=== PATIENT | female | born 1980 ===

== ENCOUNTER 2025-01-31 12:13 | Emergency (ER) | payer BC, SELFPAY ==
[2025-01-31 12:15] VITALS: BP 145/98
[2025-01-31] MEDS: MORPHINE SULFATE 2 MG IV (12:59)
[2025-01-31] MEDS: ZOFRAN 4 MG IV (12:59)
[2025-01-31] MEDS: NSS 500 IV (12:59)
--- NOTE | 2025-01-31 12:59 | ED.GENMED ---
History of Present Illness
General
Chief Complaint: Abdominal Pain
Source: patient and spouse
Exam Limitations: none
Time Seen by Provider: 01/31/25 12:36
Nursing documentation reviewed up to this point in time: agreed with
History of Present Illness
History of Present Illness:
Patient presents to ED secondary to sudden onset of left lower abdominal pain with nausea and vomiting, around 11 AM while she was sitting in front of computer working. Abdominal pain described as cramping, nonradiating, without any alleviating or
exacerbating factors. Patient attempted to have bowel movement, with the hopes that it would alleviate her symptoms, without success. Denies fever or chills. Denies trauma. Denies back pain. Denies difficulty with urination. Denies previous
history of similar symptoms. Denies family history of kidney stones or gallstones. Denies recent illness. Denies sick contact. Denies change in activities. Patient reports taking Flexeril for the first time last night, secondary to bulging disc.
Review of Systems
Review of Systems
All Other Systems: ROS reviewed and negative except as documented in HPI and ROS
Constitutional: Reports no symptoms; Denies fever
ABD/GI: Reports abdominal pain, nausea and vomiting
: Reports no symptoms
Musculoskeletal: Reports no symptoms
Skin: Reports no symptoms
Neurological: Reports no symptoms
Phy Exam
Physical Exam
Physical Exam:
Physical Exam
General: moderate painful distress, not acutely ill. afebrile
Head: nc/at. eomi
Neck: supple. normal range of motion
Abdomen: normal bowel sounds. mild LLQ tenderness to palpation, without distention
Neuro: alert and oriented x 3. no focal neurological deficits
Skin: no rash
Psychiatric: well kept. interactive and cooperative
Extremities: no edema. no calf tenderness.
Course
Orders/Labs/Results
Orders:
Orders
01/31/25 12:56
0.9% Sodium Chloride 500 ml [Nss] 500 ml IV BOLUS
Ondansetron Injectable [Zofran] 4 mg IV NOW STA
Test Result ONCE
01/31/25 12:57
Ketorolac [Toradol] 15 mg .ROUTE .STK-MED ONE
Morphine Sulfate 2 mg IV NOW STA
Ondansetron Injectable [Zofran] 4 mg .ROUTE .STK-MED ONE
US Pelvis W Transvag Combined Urgent
Comment:
Reason For Exam: LLQ pain
01/31/25 13:04
Basic Metabolic Panel Urgent
Complete Blood Count/With Diff Urgent
HCG, Serum Qualitative Screen Urgent
01/31/25 13:51
HYDROmorphone [Dilaudid] 0.5 mg IV NOW STA
01/31/25 16:57
Stool Culture Urgent
LAI Source: Feces/Stool
Specimen Description:
Date Specimen was Collected: 01/31/25
Time Specimen was Collected: 16:56
Abnormal Lab Results
01/31/25
13:04
WBC 17.9 H 10^3/uL
(4.8-10.8)
Abs Immat Gran (auto) 0.1 H 10^3/uL
(0-0.05)
Absolute Neuts (auto) 14.9 H 10^3/uL
(1.4-6.5)
Absolute Monos (auto) 1.0 H 10^3/uL
(0.1-0.6)
Neutrophils % 82.9 H %
(42.2-75.2)
Lymphocytes % 10.8 L %
(20.5-51.1)
Chloride 109 H mmol/L
(98-107)
Carbon Dioxide 21 L mmol/L
(22-30)
BUN 21 H mg/dl
(7-17)
Glucose 111 H mg/dl
(70-99)
01/31/25 13:04
01/31/25 13:04
Vital Signs
Initial and Last Documented VS:
Initial Vital Signs
Temp Pulse Resp BP Pulse Ox
98.5 F 67 16 145/98 98
01/31/25 12:15 01/31/25 12:15 01/31/25 12:15 01/31/25 12:15 01/31/25 12:15
Last Documented Vital Signs
Temp Pulse Resp BP Pulse Ox
97.9 F 75 18 130/70 100
01/31/25 13:57 01/31/25 15:26 01/31/25 15:26 01/31/25 15:26 01/31/25 15:26
MDM/Problems Addressed
MDM/Problems Addressed:
Pelvic ultrasound report reviewed and discussed with patient. Repeat abdominal exam: Soft and nontender. Patient does report improvement after treatment. In addition, during observation in ED, patient reports loose bowel movement along with
cramping sensation in her lower abdomen, raising possibility of cramping associated with diarrhea, likely viral as etiology behind her presenting symptoms. Otherwise, patient remains afebrile, hemodynamically stable, and nontoxic-appearing. With
blood work being normal and benign repeat abdominal exam, patient feels comfortable going home at this time. Patient will be treated conservatively with fluids and antiemetic medication, with return precautions provided, i.e. fever/worsening
pain/persistent vomiting. Patient expresses understanding, at time of discharge, to the care of her spouse.
*Pulse Oximetry
SaO2: 98
Oxygen Mode of Delivery: Room air
Patient hypoxic: no
*Critical Care Note
Total Time (30-74mins, 75-104mins- exclusive of procedures): Not Applicable
ED Attending Note
-
Portions of this chart may have been created with voice recognition software.� Occasional wrong word or��sound alike� substitutions may have occurred due to the inherent limitations of voice recognition software.
Discharge Plan
Departure
Patient Disposition: Home (Routine Discharge)
Date of Disposition: 01/31/25
Time of Disposition: 16:25
Patient with high blood pressure during this ER visit?: Yes
Condition: Good
Discharge Problem:
Abdominal pain
Instructions: Abdominal Pain
Prescriptions:
New
ondansetron 4 mg Tablet,Disintegrating
4 mg PO TIDPRN PRN (Reason: nausea/vomiting) Qty: 12 0RF
Referrals:
UNKNOWN - PT DOES,NOT KNOW [Family Provider]
Activity Restrictions/Additional Instructions:
As discussed, please follow-up with your primary care physician for reevaluation. Please consider return to ED with worsening symptoms, i.e. fever/worsening pain/vomiting. Your prescription has been sent electronically to [facility]
Interventions
Interventions:
*Risk Screen - Suicide Last Done: 01/31/25 12:15
*General Assessment Last Done: 01/31/25 12:15
*Neglect/Abuse Screening Last Done: 01/31/25 12:15
*ED- Fall Risk Assessment Last Done: 01/31/25 12:15
*ED COVID-19 Vaccine History Last Done: 01/31/25 12:15
*ED Influenza Vaccine History Last Done: 01/31/25 12:15
*Nursing Disposition Last Done: 01/31/25 16:43
DA-Qjichf-Qtatbszxbv Assessment Last Done: 01/31/25 14:27
Discharge Date and Time
Discharge Date/Time: 01/31/25 16:43
Print Language: LAO
[2025-01-31 13:17] LABS: Hematocrit 39.9 % (37.0-47.0); Hemoglobin 13.2 g/dL (12.0-16.0); Mean Corp Hgb Conc. 33.1 g/dL (33.0-37.0); Mean Corpuscular Volume 93.2 fL (81.0-99.0); Nucleated Red Blood Cells % 0 %; Platelet Count 400 10^3/uL (130-400); Red Cell Dist. Width 12.9 % (11.5-14.5)
[2025-01-31 13:42] LABS: HCG, Serum Qualitative Screen Negative
[2025-01-31 13:44] LABS: Blood Urea Nitrogen 21 mg/dl (7-17); Calcium 9.7 mg/dl (8.4-10.2); Carbon Dioxide 21 mmol/L (22-30); Chloride 109 mmol/L (98-107); Glucose 111 mg/dl (70-99); Potassium 3.5 mmol/L (3.5-5.1); Sodium 138 mmol/L (135-145); eGFR > 60.00
[2025-01-31] MEDS: DILAUDID 0.5 MG IV (14:03)
[2025-01-31 15:26] VITALS: BP 130/70
== END 2025-01-31 16:43 | disposition home or self-care (01) ==
LOC: EMR 12:13
PROVIDERS: EMERGENCY PHYSICIAN Emergency Medicine
DX: R10.32 Left lower quadrant pain (principal); R03.0 Elevated blood-pressure reading, without diagnosis of hypertension
CPT/HCPCS: 99284; 96374; 96375 ×2; 96361; 76830; 76856; 80048; 84703; 85025; 87045; 87046; 87427

== ENCOUNTER 2025-02-02 16:34 | Inpatient (IN) | payer BC, SELFPAY ==
[2025-02-02] VITALS (11 sets, daily range): BP systolic 109–149; BP diastolic 69–92; BMI 27.7; BMI 26.9
[2025-02-02] MEDS: DILAUDID 1 MG IV ×2 (12:40→16:17)
[2025-02-02] MEDS: ZOFRAN 4 MG IV (12:40)
[2025-02-02] MEDS: NSS 1000 IV ×2 (12:41→21:03)
[2025-02-02 13:01] LABS: Hematocrit 43.8 % (37.0-47.0); Hemoglobin 14.1 g/dL (12.0-16.0); Mean Corp Hgb Conc. 32.2 g/dL (33.0-37.0); Mean Corpuscular Volume 94.0 fL (81.0-99.0); Platelet Count 377 10^3/uL (130-400); Red Cell Dist. Width 13.0 % (11.5-14.5)
[2025-02-02 13:16] LABS: ALT (SGPT) 25 U/L (0-35); AST (SGOT) 24 U/L (14-36); Albumin 4.0 g/dl (3.5-5.0); Alkaline Phosphatase 90 U/L (38-126); Blood Urea Nitrogen 11 mg/dl (7-17); Calcium 9.0 mg/dl (8.4-10.2); Carbon Dioxide 23 mmol/L (22-30); Chloride 104 mmol/L (98-107); Estimated Creatinine Clearance 94 ml/min; Glucose 96 mg/dl (70-99); Lipase 130 U/L (23-300); Potassium 4.2 mmol/L (3.5-5.1); Sodium 135 mmol/L (135-145); Total Protein 7.0 g/dl (6.3-8.2); eGFR > 60.00
[2025-02-02 13:17] LABS: Urine Character Clear (Clear)
[2025-02-02 13:30] LABS: Nucleated Red Blood Cells % 0 %
[2025-02-02 13:33] LABS: Urine Squamous Cell 26-30 /LPF (Few)
--- NOTE | 2025-02-02 14:57 | ED.GENMED ---
History of Present Illness
<Ani Sexton PA-C - Last Filed: 02/03/25 20:00>
General
Chief Complaint: Abdominal Pain
Source: patient
Exam Limitations: none
Time Seen by Provider: 02/02/25 11:21
Nursing documentation reviewed up to this point in time: agreed with
History of Present Illness
History of Present Illness:
see MDM
Phy Exam
<Ani Sexton PA-C - Last Filed: 02/03/25 20:00>
Physical Exam
Physical Exam:
see MDM
Course
<Ani Sexton PA-C - Last Filed: 02/03/25 20:00>
Orders/Labs/Results
Orders:
Orders
02/02/25 Breakfast
Clear Liquid
At Your Request: Full Participation
02/02/25 12:18
0.9% Sodium Chloride 1000 ml [Nss] 1,000 ml IV BOLUS
HYDROmorphone [Dilaudid] 1 mg IV NOW STA
Ondansetron Injectable [Zofran] 4 mg IV NOW STA
02/02/25 12:19
CT Abd/Pel (IV only)-DH only Urgent
Comment:
Reason For Exam: lower abd pain, fever, hematochezia
02/02/25 12:44
Complete Blood Count/With Diff Urgent
Comprehensive Metabolic Panel Urgent
Lactic Acid Urgent
Lipase Urgent
Urinalysis Reflex To Culture Urgent
Date Specimen was Collected: 02/02/25
Time Specimen was Collected: 12:41
Urine Microscopic Reflex Cult Urgent
Blood Culture Q30M
LAI Source: Blood/Venous
Specimen Description:
Blood Culture Q30M
LAI Source: Blood/Venous
Specimen Description:
Urine Culture Urgent
LAI Source: U
Specimen Description:
Date Specimen was Collected: 10/18/25
Time Specimen was Collected: 12:41
02/02/25 14:56
Piperacillin/Tazo 3.375 Gram [Zosyn] 3.375 gram in 50 ml IV NOW
02/02/25 15:45
Admit/Transfer Patient As Directed
Co-Sign Provider:
Level of Care: Inpatient admission
Assign to:: Medical/Surgical
Physician / Group: deb
Diagnosis: colitis
Reason for Hospitalization: colitis
Expected length of stay greater than two midnights?: Yes
ELOS- Estimated Length of Stay in days: 3
I certify the patient meets the requirements for IP care: Yes
Code Status As Directed
Resuscitation Status: Full Code
PRN Pain Medication Management As Directed
May give lesser potent ordered pain med per pt: Yes
preference::
Protocol:: Medication orders for pain may be administered in a
manner that supports deferring to patient preference
when the pt is:
- Requesting an ordered lesser potent pain medication.
Least to most potent pain medications are defined
as: acetaminophen < NSAID < tramadol < opioids
(morphine, oxycodone, hydromorphone).
- Requesting a lesser dose of the same medication IF
ORDERED.
- Requesting a less intrusive route of administration
if both routes are prescribed by the provider (PO <
IV).
02/02/25 16:07
HYDROmorphone [Dilaudid] 1 mg IV NOW STA
02/02/25 20:27
0.9% Sodium Chloride 1000 ml [Nss] 1,000 ml IV 100 mls/hr
Acetaminophen [Tylenol] 650 mg PO Q4HPRN PRN
02/02/25 20:27
Activity As Directed
Activity Level: As Tolerated
Pneumatic Compression Sleeves As Directed
Type: Knee high
Vital Signs As Directed
Frequency: Per unit guidelines
DX Deep Vein Thrombosis Video Routine
02/03/25 06:15
Basic Metabolic Panel IN AM
Complete Blood Count/No Diff IN AM
02/03/25 22:00
Piperacillin/Tazo 3.375 Gram [Zosyn] 3.375 gram in 50 ml IV Q6H
02/04/25 06:00
Basic Metabolic Panel IN AM
Complete Blood Count/No Diff IN AM
02/05/25 06:00
Basic Metabolic Panel IN AM
Complete Blood Count/No Diff IN AM
02/06/25 06:00
Basic Metabolic Panel IN AM
Abnormal Lab Results
02/02/25
12:44
WBC 25.6 H 10^3/uL
(4.8-10.8)
MCHC 32.2 L g/dL
(33.0-37.0)
Abs Immat Gran (auto) 0.2 H 10^3/uL
(0-0.05)
Absolute Neuts (auto) 22.4 H 10^3/uL
(1.4-6.5)
Absolute Monos (auto) 1.0 H 10^3/uL
(0.1-0.6)
Immature Gran % 0.6 H %
(0-0.5)
Neutrophils % 87.7 H %
(42.2-75.2)
Lymphocytes % 7.0 L %
(20.5-51.1)
Urine Ketones 3+ A
(Negative)
Ur Occult Blood Reflex 2+ A
(Negative)
Leukocyte Esterase Rfl 1+ A
(Negative)
Urine RBC 7-10 A /HPF
(0-2)
Urine Bacteria (Reflex) Moderate A
(Negative)
Urine Albumin (Reflex) 2+ A
(Neg - Trace)
02/02/25 12:44
02/02/25 12:44
Vital Signs
Initial and Last Documented VS:
Initial Vital Signs
Temp Pulse Resp BP Pulse Ox
36.5 C 111 20 149/89 99
02/02/25 11:08 02/02/25 11:08 02/02/25 11:08 02/02/25 11:08 02/02/25 11:08
Last Documented Vital Signs
Temp Pulse Resp BP Pulse Ox
36.7 C 89 16 123/76 100
02/03/25 16:00 02/03/25 16:00 02/03/25 16:00 02/03/25 16:00 02/03/25 16:00
<Aravind Ledesma, DO - Last Filed: 02/02/25 16:45>
Orders/Labs/Results
Orders:
Orders
02/02/25 Breakfast
Clear Liquid
At Your Request: Full Participation
02/02/25 12:18
0.9% Sodium Chloride 1000 ml [Nss] 1,000 ml IV BOLUS
HYDROmorphone [Dilaudid] 1 mg IV NOW STA
Ondansetron Injectable [Zofran] 4 mg IV NOW STA
02/02/25 12:19
CT Abd/Pel (IV only)-DH only Urgent
Comment:
Reason For Exam: lower abd pain, fever, hematochezia
02/02/25 12:44
Complete Blood Count/With Diff Urgent
Comprehensive Metabolic Panel Urgent
Lactic Acid Urgent
Lipase Urgent
Urinalysis Reflex To Culture Urgent
Date Specimen was Collected: 02/02/25
Time Specimen was Collected: 12:41
Urine Microscopic Reflex Cult Urgent
Blood Culture Q30M
LAI Source: Blood/Venous
Specimen Description:
Blood Culture Q30M
LAI Source: Blood/Venous
Specimen Description:
Urine Culture Urgent
LAI Source: U
Specimen Description:
Date Specimen was Collected: 02/02/25
Time Specimen was Collected: 12:41
02/02/25 14:56
Piperacillin/Tazo 3.375 Gram [Zosyn] 3.375 gram in 50 ml IV NOW
02/02/25 15:45
Admit/Transfer Patient As Directed
Co-Sign Provider:
Level of Care: Inpatient admission
Assign to:: Medical/Surgical
Physician / Group: deb
Diagnosis: colitis
Reason for Hospitalization: colitis
Expected length of stay greater than two midnights?: Yes
ELOS- Estimated Length of Stay in days: 3
I certify the patient meets the requirements for IP care: Yes
Code Status As Directed
Resuscitation Status: Full Code
PRN Pain Medication Management As Directed
May give lesser potent ordered pain med per pt: Yes
preference::
Protocol:: Medication orders for pain may be administered in a
manner that supports deferring to patient preference
when the pt is:
- Requesting an ordered lesser potent pain medication.
Least to most potent pain medications are defined
as: acetaminophen < NSAID < tramadol < opioids
(morphine, oxycodone, hydromorphone).
- Requesting a lesser dose of the same medication IF
ORDERED.
- Requesting a less intrusive route of administration
if both routes are prescribed by the provider (PO <
IV).
02/02/25 16:07
HYDROmorphone [Dilaudid] 1 mg IV NOW STA
02/02/25 20:27
0.9% Sodium Chloride 1000 ml [Nss] 1,000 ml IV 100 mls/hr
Acetaminophen [Tylenol] 650 mg PO Q4HPRN PRN
02/02/25 20:27
Activity As Directed
Activity Level: As Tolerated
Pneumatic Compression Sleeves As Directed
Type: Knee high
Vital Signs As Directed
Frequency: Per unit guidelines
DX Deep Vein Thrombosis Video Routine
02/03/25 06:15
Basic Metabolic Panel IN AM
Complete Blood Count/No Diff IN AM
02/03/25 22:00
Piperacillin/Tazo 3.375 Gram [Zosyn] 3.375 gram in 50 ml IV Q6H
02/04/25 06:00
Basic Metabolic Panel IN AM
Complete Blood Count/No Diff IN AM
02/05/25 06:00
Basic Metabolic Panel IN AM
Complete Blood Count/No Diff IN AM
02/06/25 06:00
Basic Metabolic Panel IN AM
Abnormal Lab Results
02/02/25
12:44
WBC 25.6 H 10^3/uL
(4.8-10.8)
MCHC 32.2 L g/dL
(33.0-37.0)
Abs Immat Gran (auto) 0.2 H 10^3/uL
(0-0.05)
Absolute Neuts (auto) 22.4 H 10^3/uL
(1.4-6.5)
Absolute Monos (auto) 1.0 H 10^3/uL
(0.1-0.6)
Immature Gran % 0.6 H %
(0-0.5)
Neutrophils % 87.7 H %
(42.2-75.2)
Lymphocytes % 7.0 L %
(20.5-51.1)
Urine Ketones 3+ A
(Negative)
Ur Occult Blood Reflex 2+ A
(Negative)
Leukocyte Esterase Rfl 1+ A
(Negative)
Urine RBC 7-10 A /HPF
(0-2)
Urine Bacteria (Reflex) Moderate A
(Negative)
Urine Albumin (Reflex) 2+ A
(Neg - Trace)
02/02/25 12:44
02/02/25 12:44
Vital Signs
Initial and Last Documented VS:
Initial Vital Signs
Temp Pulse Resp BP Pulse Ox
36.5 C 111 20 149/89 99
02/02/25 11:08 02/02/25 11:08 02/02/25 11:08 02/02/25 11:08 02/02/25 11:08
Last Documented Vital Signs
Temp Pulse Resp BP Pulse Ox
36.7 C 89 16 123/76 100
02/03/25 16:00 02/03/25 16:00 02/03/25 16:00 02/03/25 16:00 02/03/25 16:00
<Ani Sexton PA-C - Last Filed: 02/03/25 20:00>
MDM/Problems Addressed
Differential Diagnosis Includes:
see MDM
MDM/Problems Addressed:
Note:
CHIEF COMPLAINT(S)
Abdominal pain
HISTORY OF PRESENT ILLNESS
The patient is a 44-year-old female who reports persistent abdominal cramps that began 2 daysa go at approximately 11 a.m. She describes the pain as starting in her lower abdomen and has been associated with chills and overheating. She attempted to
alleviate these symptoms by lying on the floor and removing her clothes. The patient experienced difficulty breathing and was brought to the hospital the following day, noting that the cramps were intense, constant, and made it difficult to breathe
through them. Upon arrival at the hospital, pt had labs (wbc 17) and pelvic US (neg) and was given IV pain meds and felt better; while here, she had a small bowel movement described as thick diarrheal-like in consistency. Since then, she was advised
to follow a liquid diet and was instructed to return if symptoms worsened.
stool studies neg
discharged home
The patient adhered to a liquid diet on Tuesday, consuming water, Gatorade, applesauce, chicken broth, fruit cups, and red jello. She reports that although the cramps reduced in frequency and severity, she continued to experience significant pain on
the left side and in her lower back. The pain was interpreted as muscle soreness from previous episodes of cramping. On the morning of presentation, after consuming a small meal, she noted dark red stool, which raised concerns about possible blood,
despite having consumed red jello.
The patient reports no recent fever at home or recorded temperatures. She denies prior surgical history except for a , surgery related to a Cushings condition, negative for bowel obstructions, inflammatory bowel disease, or significant
bowel surgery except for hemorrhoids during .
PAST MEDICAL AND SURIGICAL HISTORY
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
CHRONIC MEDICAL CONDITIONS SIGNIFICANTLY AFFECTING CARE
Cushings syndrome
MEDICATIONS
Mirena for contraception (last changed on the of the month)
REVIEW OF SYSTEMS
- Gastrointestinal: Abdominal cramps, left-side and lower back pain, thick diarrhea-like movements, dark red stools
- Constitutional: Chills and overheating without documented fever
- Respiratory: Difficult breathing during cramping episodes
PHYSICAL EXAM
GENERAL: Alert , in no apparent distress
EYE: pupils equal and reactive
NECK: Supple
ENT: o/p clr, mmm.
CARDIAC: Regular rate and rhythm .
LUNGS: Clear breath sounds bilaterally, no acute respiratory distress, no wheezes/rales/rhonchi
ABDOMEN: Soft, moderate left lower quadrant tenderness, mild guarding, , no cvat, normal bowel sounds
NEUROLOGICAL: Alert and oriented, no focal neuro deficits
SKIN: Warm and dry, skin intact.
MUSCULOSKELETAL: No edema, well perfused. neg mitchell's sign
PSYCH: Normal and appropriate interaction.
Nursing notes reviewed and vital signs reviewed.
PLAN
- Administer intravenous fluids
- Consider administering pain relief with Dilaudid as requested
- Perform rectal examination to confirm presence of blood in stool
- Review previous test results to check for previous stool sample analysis
- Monitor for potential differential causes such as diverticulitis, infectious processes, or hemorrhoids
DIFFERENTIAL DIAGNOSIS
The Differential Diagnosis includes, in no particular order and is not limited to:
1. Diverticulitis/COLIITIS
2. Infectious colitis (e.g., Escherichia coli, Shigella)
3. Hemorrhoids
4. Inflammatory bowel disease
5. Gastroenteritis
6. Appendicitis
7. Irritable bowel syndrome
8. Peptic ulcer disease
9. Gastrointestinal bleeding due to other causes
10. Cushings syndrome-related gastrointestinal issues
02/02/25 - 15:09
Patients white blood cell count has risen to 25, indicating a potential bacterial infection. Imaging reveals severe inflammation and thickening in the descending and transverse colon primarily along the left side, suggestive of colitis. Infectious
colitis is suspected due to negative stool cultures for common pathogens and normal lactic acid levels ruling out ischemic colitis. Initiation of intravenous antibiotics is recommended given the clinical severity and risk of sepsis. Blood cultures
have been ordered to monitor for systemic infection. Hospital admission is advised for close monitoring. GI consultation may be necessary to determine if a colonoscopy is eventually needed. Pain management has been adjusted with consideration of
patients comfort and current medication tolerance.
<Ani Sexton PA-C - Last Filed: 02/03/25 20:00>
*Pulse Oximetry
SaO2: 99
Oxygen Mode of Delivery: Room air
Patient hypoxic: no (99)
*Critical Care Note
Total Time (30-74mins, 75-104mins- exclusive of procedures): Not Applicable
ED Attending Note
<Ani Sexton PA-C - Last Filed: 02/03/25 20:00>
-
Portions of this chart may have been created with voice recognition software.� Occasional wrong word or��sound alike� substitutions may have occurred due to the inherent limitations of voice recognition software.
<Aravind Ledesma DO - Last Filed: 02/02/25 16:45>
ED Attending Note
Patient seen and examined by attending physician: Yes
I performed the substantive portion of visit, reviewed & personally made and approve the management plan that is documented in note by myself or LUC.: Yes
Discharge Plan
Departure
Patient Disposition: Admit
Date of Disposition: 02/02/25
Time of Disposition: 15:17
Admit to: Med/Surg
Presentation/result/management discussed w/ accepting MD/DO: Hospitalist
Condition: Fair
Covid-19: Not Applicable
Discharge Problem:
Colitis
Interventions
Interventions:
*Risk Screen - Suicide Last Done: 02/02/25 11:08
*General Assessment Last Done: 02/02/25 11:08
*Neglect/Abuse Screening Last Done: 02/02/25 11:08
*ED COVID-19 Vaccine History Last Done: 02/02/25 11:08
*ED Influenza Vaccine History Last Done: 02/02/25 11:08
*Nursing Disposition Last Done: 02/02/25 20:26
EU-Ylubjw-Chnaifhqjv Assessment Last Done: 02/02/25 12:29
Discharge Date and Time
Discharge Date/Time: 02/02/25 20:27
[2025-02-02] MEDS: ZOSYN 50 IV (15:04)
--- NOTE | 2025-02-02 15:26 | HPS.HSE ---
Addendum entered and electronically signed by Marcia Redmond MD 02/02/25 16:29:
This is an addendum to H&P written by Karolina Ramirez on 02/02/2025. �Patient seen and examined independently with [employer].
44-year-old female past medical history of [place] syndrome presenting with 2 days of severe lower left abdominal pain, chills, tarry thick stool not quite diarrhea and 1 episode of vomiting few days ago. �Was here in the emergency room 2 days ago
with stool culture pending.
Vital signs show tachycardia up to 111.
Labs show leukocytosis of 25. �Urinalysis unremarkable.
CT abdomen pelvis shows severe colitis of descending colon and mild to moderate colitis of the transverse colon possible infectious or inflammatory.
Patient with acute likely infectious colitis. �Clears, IV fluids, check C. Difficile if able, Zosyn. �Stool culture from 2 days ago still pending although Campylobacter negative.
Original Note:
Family Physician
-
Family Physician: José Aquino MD
Chief Complaint
-
Abdominal pain associate with nausea vomiting diarrhea
History of Present Illness
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 she vomited once in the ER on . she was evaluated
in the ER on and was sent home on clear liquid diet. her pain and diarrhea was getting better and but today she woke up with worsening abdominal cramp and one small bloody diarrhea. she noted heart burn with rice. denied fever. stated
chills. was having headache for which she was taking Tylenol. denied chest pain, sob. denied dysuria or hematuria.
CT with colitis. admitting for further management.
Medical History
Past Medical History
Past Medical History: Reports Other
Additional Past Medical History:
ashwini syndrome
Past Surgical History: Reports Other
Additional Past Surgical History:
Breast reduction, right shoulder surgeries, adrenal gland surgery
Social History
Tobacco: Non-smoker
Alcohol: None
Drug: None
Family History
Family History: Not pertinent
Allergies / Home Medications
Allergies reflects when Allergies were last updated in [employer].
Home Medications with original date entered in [employer]
Allergy/Medication List:
Allergies
Allergy/AdvReac Type Severity Reaction Status Date / Time
nabumetone (From Relafen) Allergy Anaphylaxis Verified 02/02/25 11:07
Home Medications
ondansetron 4 mg disintegrating tablet 4 mg PO TIDPRN PRN nausea/vomiting #12 tabs 01/31/25
Review of Systems
-
Constitutional: Reports No Symptoms
EENT: Reports No Symptoms
Respiratory: Reports No Symptoms
Cardiac: Reports No Symptoms
Abdomen/GI: Reports Abdominal Pain and Diarrhea
: Reports No Symptoms
Musculoskeletal: Reports No Symptoms
Skin: Reports No Symptoms
Neurological: Reports No Symptoms
Endocrine: Reports No Symptoms
Hematologic/Lymphatic: Reports No Symptoms
Psych: Reports No Symptoms
Physical Exam
Vital Signs
Vital Signs
Temp Pulse Resp BP Pulse Ox
97.7 F 100 19 119/81 97
02/02/25 11:08 02/02/25 15:15 02/02/25 15:15 02/02/25 15:06 02/02/25 15:15
Physical Exam
General: Well Developed, Well Nourished and No Apparent Distress
HEENT: NormoCephalic, Moist mucous membranes and Atraumatic
Respiratory: Clear
Cardiac: S1/S2 and Regular Rhythm; No Murmur or Rub
GI: Soft, Non Distended, Normal Bowel Sounds and Tender; No Organomegaly
Rectal: Deferred by Provider
Musculoskeletal: No Clubbing, No Cyanosis and No Edema
Skin: No Rash
Neuro: AO x 3 and Nonfocal/grossly intact
Psych: Calm
Laboratory Results
-
02/02/25 12:44
02/02/25 12:44
Laboratory Results
Lactic Acid 1.1 mmol/L (0.7-2.0) 02/02/25 12:44
Total Bilirubin 0.7 mg/dl (0.2-1.3) 02/02/25 12:44
AST 24 U/L (14-36) 02/02/25 12:44
ALT 25 U/L (0-35) 02/02/25 12:44
Alkaline Phosphatase 90 U/L (38-126) 02/02/25 12:44
Lipase 130 U/L (23-300) 02/02/25 12:44
Data Reviewed
-
CT Scan: Report Reviewed by me
Lab Data: Labs Reviewed by me
Impression/Plan
-
# Severe abdominal pain associate with fever, diarrhea concern for colitis
- WBC 25K
- CT with Severe colitis of the descending colon and mild to moderate colitis of the transverse colon, probably infectious or inflammatory. Ischemic colitis would be considered less likely in the absence of significant atherosclerosis by CT.
- clears
- IV Zosyn continued
- Blood culture sent from ER
-stool for C diff
-fluids continued for hydration
#DVT prophylaxis
-scd
#CODE status
-full code
--- NOTE | 2025-02-02 17:57 | EDCM ---
CM reviewed chart and met with pt bedside in ED. Lives with her in 2 story home, 3-4 ADENIKE.
Independent in ADLs, personal care and ambulation at baseline, no assistive devices, no DME in home.
Confirms prescription coverage.
Hx [facility], no hx SNF
PCP: José Aquino
Pharmacy: [address]
Anticipate discharge home, CM will continue to follow for any discharge planning needs.
--- NOTE | 2025-02-02 20:15 | PTCARENOTE ---
Patient received from ED. Patient walked from stretcher into room. Patient complained of abdominal pain. Vitals stable. Patient oriented to room and call mendieta within reach.
[2025-02-03 07:01] LABS: Blood Urea Nitrogen 8 mg/dl (7-17); Calcium 7.7 mg/dl (8.4-10.2); Carbon Dioxide 22 mmol/L (22-30); Chloride 109 mmol/L (98-107); Estimated Creatinine Clearance 96 ml/min; Glucose 75 mg/dl (70-99); Potassium 4.2 mmol/L (3.5-5.1); Sodium 135 mmol/L (135-145); eGFR > 60.00
[2025-02-03 07:11] LABS: Hematocrit 32.5 % (37.0-47.0); Hemoglobin 10.6 g/dL (12.0-16.0); Mean Corp Hgb Conc. 32.6 g/dL (33.0-37.0); Mean Corpuscular Volume 94.8 fL (81.0-99.0); Platelet Count 283 10^3/uL (130-400); Red Cell Dist. Width 12.8 % (11.5-14.5)
[2025-02-03] MEDS: NSS 1000 IV ×2 (07:59→18:28)
[2025-02-03 08:00] VITALS: BP 100/64
[2025-02-03] MEDS: TYLENOL 650 MG PO (09:45)
[2025-02-03] MEDS: ROXICODONE 5 MG PO ×2 (10:14→16:04)
--- NOTE | 2025-02-03 12:13 | W.PN.HOSP.TC ---
Today's Communication/Plan
-
Continue clear liquid diet, IVF, antibiotics, pain control with IV and p.o. pain meds as needed
Assessment / Plan
Assessment / Plan
44F with Germán's presenting with abdominal pain, Found to have colitis
Infectious colitis
CT consistent with colitis question infectious or inflammatory. Leukocytosis improving
Stool culture pending Shiga otherwise negative
C. difficile ordered but not performed as patient had formed stools
Empiric IV Zosyn for 3 days. Blood cultures no growth today
PRN IV and p.o. narcotics for pain
IV fluids, CLD. Patient does not feel ready to advance diet yet.
Bacteriuria
UA with 1+ LE/negative nitrite, 3-5 WBC. UCX positive GNB'
ABX as above
Anemia
Patient denies any acute bleeding. Hgb dropped from 14.1->10.6, may be dilutional as WBC and PLT also had significant drop. Normal MCV. Check anemia panel
Germán's
No active symptoms
DVT PPx
Lovenox
Anticipated Discharge: 24 - 48 hours
Subjective/Interval History
-
Date of Service: February 03, 2025
Patient has been cramping after eating Jell-O, pain is currently controlled with pain medicine
Objective Data
-
Labs:
Laboratory Results
02/03/25
06:15
WBC 14.6 H
Hgb 10.6 L D
Hct 32.5 L
Plt Count 283 D
Sodium 135
Potassium 4.2
Chloride 109 H
Carbon Dioxide 22
BUN 8
Creatinine 0.7
Glucose 75
Calcium 7.7 L
Vital Signs:
Vital Signs
Temp Pulse Resp BP Pulse Ox
98 F 84 17 100/64 97
02/03/25 08:00 02/03/25 08:00 02/03/25 08:00 02/03/25 08:00 02/03/25 08:00
I&O
02/02/25 02/03/25 02/04/25
06:59 06:59 06:59
Intake Total 1580 / 1580
Balance 1580 / 1580
Review of Systems
-
All other systems: Reviewed and negative
Physical Exam
-
General: No Apparent Distress
HEENT: Moist Mucous Membranes, Anicteric and PERRLA
Respiratory: Clear to Auscultation; Negative Wheezes, Rales or Rhonchi
Cardiac: Regular Rhythm and S1/S2; Negative Murmur, Rub or Gallop
GI: Soft, Nontender, Nondistended and Normal Bowel Sounds
Musculoskeletal: No Edema
Skin: Warm and Dry; Negative Rash, Ulcers or Lesions
Neuro: Awake and AO x 3
Hematologic / Lymphatic: No Lymphadenopathy
Psych: Calm
[2025-02-03 16:00] VITALS: BP 123/76
[2025-02-03] MEDS: LOVENOX 40 MG SC (18:29)
[2025-02-03] MEDS: ZOSYN 50 IV (20:59)
[2025-02-03 23:36] VITALS: BP 143/52
[2025-02-04] MEDS: NSS 1000 IV (03:17)
[2025-02-04] MEDS: ZOSYN 50 IV ×4 (03:17→21:35)
[2025-02-04] MEDS: DILAUDID 0.5 MG IV (05:36)
[2025-02-04 07:30] VITALS: BP 108/64
--- NOTE | 2025-02-04 09:17 | W.PN.HOSP.TC ---
Today's Communication/Plan
-
Advance diet
Assessment / Plan
Assessment / Plan
Physical exam:
General: Well Developed, Well Nourished and No Apparent Distress
HEENT: Normocephalic, Atraumatic and Moist Mucous Membranes
Respiratory: Clear to Auscultation; Negative Wheezes, Rales or Rhonchi
Cardiac: Regular Rhythm and S1/S2
GI: Soft, Nontender and Nondistended
Musculoskeletal: No Clubbing, No Cyanosis and No Edema
Neuro: Awake, Alert and Oriented, no neurological
Psych: Calm
A/P:
Acute colitis:
Suspected infectious colitis
Advance to full liquid diet today
Continue antibiotics
Stool cultures negative
Stop IV fluids
Stop IV and oral narcotics
Add Bentyl as needed and reevaluate
Patient had no EGD or colonoscopy in the past-plan to refer to GI as outpatient
Asymptomatic bacteriuria with Klebsiella pneumonia:
No need to treat but already received antibiotics for GI purposes.
Anemia:
Dilutional component
Continue to monitor
History of Germán's:
No further evaluation
DVT prophylaxis:
Lovenox SQ
CODE STATUS:
Full code
Total time spent on today's encounter was 35 minutes which included time spent in counseling the patient/family regarding diagnosis and treatment plan as listed above, goals of care, and symptom management. Case was discussed with nursing staff,
specialists, and care coordinators/case management. All labs and imaging personally reviewed by me. Remainder the time spent in detailed review of previous records, lab data, imaging, and other medical provider documentation.
Anticipated Discharge: 24 - 48 hours
Subjective/Interval History
-
Date of Service: February 04, 2025
Patient still has some abdominal discomfort but tolerating clear liquid diet so far. Last episode of bowel movement earlier this morning. No nausea or vomiting. Afebrile
Objective Data
-
Labs:
Laboratory Results
02/04/25
08:46
WBC Pending
Hgb Pending
Hct Pending
Plt Count Pending
Sodium Pending
Potassium Pending
Chloride Pending
Carbon Dioxide Pending
BUN Pending
Creatinine Pending
Glucose Pending
Calcium Pending
Vital Signs:
Vital Signs
Temp Pulse Resp BP Pulse Ox
98 F 71 12 108/64 96
02/04/25 07:30 02/04/25 07:30 02/04/25 07:30 02/04/25 07:30 02/04/25 07:30
I&O
02/03/25 02/04/25 02/05/25
06:59 06:59 06:59
Intake Total 1580 / 1580 1680 / 1680
Balance 1580 / 1580 1680 / 1680
[2025-02-04 09:20] LABS: Hematocrit 35.2 % (37.0-47.0); Hemoglobin 11.6 g/dL (12.0-16.0); Mean Corp Hgb Conc. 33.0 g/dL (33.0-37.0); Mean Corpuscular Volume 93.1 fL (81.0-99.0); Platelet Count 337 10^3/uL (130-400); Red Cell Dist. Width 12.7 % (11.5-14.5)
[2025-02-04 10:12] LABS: Blood Urea Nitrogen 5 mg/dl (7-17); Calcium 8.3 mg/dl (8.4-10.2); Carbon Dioxide 23 mmol/L (22-30); Chloride 110 mmol/L (98-107); Estimated Creatinine Clearance 84 ml/min; Glucose 103 mg/dl (70-99); Potassium 3.6 mmol/L (3.5-5.1); Sodium 138 mmol/L (135-145); eGFR > 60.00
--- NOTE | 2025-02-04 10:31 | CM ---
Maintained on clear liquids and IVF.
Pain meds as needed.
Currently on IV antibiotics .
PLAn Home no anticipated needs
[2025-02-04] MEDS: NSS IV (14:39)
[2025-02-04 15:00] VITALS: BP 138/87
[2025-02-04] MEDS: BENTYL 10 MG PO (15:04)
[2025-02-04] MEDS: DILAUDID 0.25 MG IV (15:39)
[2025-02-04] MEDS: LOVENOX SC (17:44)
[2025-02-04 21:14] VITALS: BP 109/65
[2025-02-04 23:40] VITALS: BP 92/55
[2025-02-05] MEDS: ZOSYN 50 IV ×2 (03:42→09:13)
[2025-02-05 07:00] VITALS: BP 97/62
[2025-02-05 08:58] LABS: Hematocrit 32.4 % (37.0-47.0); Hemoglobin 10.1 g/dL (12.0-16.0); Mean Corp Hgb Conc. 31.2 g/dL (33.0-37.0); Mean Corpuscular Volume 97.0 fL (81.0-99.0); Platelet Count 297 10^3/uL (130-400); Red Cell Dist. Width 12.6 % (11.5-14.5)
[2025-02-05] MEDS: DILAUDID 0.25 MG IV (09:12)
[2025-02-05 09:32] LABS: Blood Urea Nitrogen 4 mg/dl (7-17); Calcium 8.2 mg/dl (8.4-10.2); Carbon Dioxide 29 mmol/L (22-30); Chloride 109 mmol/L (98-107); Estimated Creatinine Clearance 84 ml/min; Glucose 85 mg/dl (70-99); Potassium 3.7 mmol/L (3.5-5.1); Sodium 136 mmol/L (135-145); eGFR > 60.00
--- NOTE | 2025-02-05 10:16 | CON.GI ---
Addendum entered and electronically signed by Ani Noble, 02/05/25 14:46:
Spoke with radiology, they feel they can clearly see patent vasculature so CTA is low yield, which is reasonable. Patient ate lunch 1.5 hours ago and has no pain. She would like to get home for her sons day tomorrow. She feels well enough to
do so at this time. I told her that if she tolerates dinner as well without pain, okay for d/c from my perspective. I relayed this to Dr. Chou as well. In the event she gets discharged, I told her I would leave GI's contact info in her d/c
paperwork and to call our office to schedule outpatient colonoscopy.
Original Note:
Consultation
-
Date/Time Consultation Requested: 02/04 15:59
Date/Time Consultation Performed: 02/05 9:00
Requesting Provider: Dr Chou
Performing Provider: Dr. Noble
Reason for Consultation: colitis
Medical History
Chief Complaint / HPI
Chief Complaint: abdominal pain, colitis
History of Present Illness:
44yoF PMH Ashwini syndrome s/p adrenalectomy presenting with LLQ abdominal pain, cramping, and dark tarry stools.
Pt reports having cramps and persistent lower abdominal pain and abnormal stool starting . She reports not eating anything abnormal, just a protein shake with almond milk which is typical for her. She describes stools that were dark, tarry
and exceedingly foul smelling on . She had 1 episode of emesis with no blood. She presented to the ED where they sent her home on BRAT diet. On Tuesday, the pain continued the entire day. By tuesday, pt represented to the ED with worsening
abdominal pain and blood in stool where they did a CT and found colitis. Pt has been on zosyn and clear diet since admission. Yesterday, they advanced to fulls with increased pain and diarrhea. Yesterday, pt had full BM consistent with diarrhea.
Today, she reports minimal diarrhea with sensation of still having to defecate and pain with eating. Pain is no longer present between meals. barely ate breakfast today due to pain.
No Hx EGD or colonoscopy. No abdominal surgeries. No hx clots, miscarriages, coagulopathy, no tobacco use. Pt reports mild, intermittent reflux ameliorated often with tums at home, not reflux feelings during this episode. Of note, pt has hx of
recurrent UTIs. She had about 1/month a year ago when she saw a urologist who put her on a prophylactic medication. She has since stopped this medication and still has had 3 UTIs this year. Denies dysuria but reports an odd urine smell starting
yesterday.
Past Medical History
Past Medical History: Other (ashwini syndrome, recurrent UTIs)
Past Surgical History: Orthopedic and Other (breast reduction)
Social History
Tobacco: Non-Smoker
Alcohol: Occasional
Drug: None
Personal:
Living: With Family
Employment: Employed
Family History
Family History: CAD and Other (father has diverticulosis, prostate cx, FH CVA and OR, no Hx Crohns, UC, colon cancer)
Allergies / Home Medications
Allergy/AdvReac Type Severity Reaction Status Date / Time
nabumetone (From Relafen) Allergy Anaphylaxis Verified 02/02/25 11:07
�Medication �Instructions �Recorded
inulin 2 gram chewable tablet 2 g PO HS 02/02/25
therapeutic multivitamin 1 tab PO HS 02/02/25
Review of Systems
-
All other systems: A 12 pt ROS was Negative except as stated above in HPI
Abdomen/GI: Reports Abdominal Pain, Diarrhea and Black Stools
: Denies Dysuria
Vital Signs
Temp Pulse Resp BP Pulse Ox
99.3 F 73 12 97/62 95
02/05/25 07:00 02/05/25 07:00 02/05/25 07:00 02/05/25 07:00 02/05/25 07:00
Physical Exam
Exam
General: Well Developed, Well Nourished, No Apparent Distress and Comfortable
HEENT: Normocephalic, Anicteric and Moist Mucous Membranes
Respiratory: Clear and Non Labored Respirations
Cardiac: S1/S2 and Regular Rhythm; Negative Peripheral Edema
GI: Soft, Non Distended, Normal Bowel Sounds and Tender (periumbilical tenderness with guarding, tenderness to LLQ)
Genito-urinary: No Costovertebral Tender (L sided discomfort with radiation to front)
Skin: Warm and Dry
Neuro: AO x 3 and Nonfocal/Grossly Intact
Psych: Calm
Results
WBC 7.9 10^3/uL (4.8-10.8) 02/05/25 08:09
Hgb 10.1 g/dL (12.0-16.0) L 02/05/25 08:09
Hct 32.4 % (37.0-47.0) L 02/05/25 08:09
MCV 97.0 fL (81.0-99.0) 02/05/25 08:09
Plt Count 297 10^3/uL (130-400) 02/05/25 08:09
Absolute Neuts (auto) 22.4 10^3/uL (1.4-6.5) H 02/02/25 12:44
Sodium 136 mmol/L (135-145) 02/05/25 08:09
Potassium 3.7 mmol/L (3.5-5.1) 02/05/25 08:09
Chloride 109 mmol/L (98-107) H 02/05/25 08:09
Carbon Dioxide 29 mmol/L (22-30) 02/05/25 08:09
BUN 4 mg/dl (7-17) L 02/05/25 08:09
Creatinine 0.8 mg/dL (0.6-1.0) 02/05/25 08:09
Calcium 8.2 mg/dl (8.4-10.2) L 02/05/25 08:09
Total Bilirubin 0.7 mg/dl (0.2-1.3) 02/02/25 12:44
AST 24 U/L (14-36) 02/02/25 12:44
ALT 25 U/L (0-35) 02/02/25 12:44
Alkaline Phosphatase 90 U/L (38-126) 02/02/25 12:44
Lipase 130 U/L (23-300) 02/02/25 12:44
Diagnostic Image Results:
Severe colitis of the descending colon and mild to moderate colitis of the transverse colon, probably infectious or inflammatory. Ischemic colitis would be considered less likely in the absence of significant atherosclerosis by CT.
Prior GI Procedures:
EGD:
Colonoscopy:
Assessment / Plan
-
44yoF PMH recurrent UTIs, Ashwini syndrome s/p adrenalectomy presenting with colitis, symptoms including LLQ abdominal pain, cramping, and melena.
AFVSS. Hgb stable. No lightheadedness or dizziness, melena resolving. Pt on zosyn with improved leukocytosis. Pt reports improved symptoms with continued postprandial pain. No hx of clotting, tobacco or thrombosis seen on CT colonic ischemic.
Tenderness periumbilical and LLQ corresponding with descending colon inflammation seen on CT. BC NGTD. Campylobacter, shiga, and salmonella toxin assays negative. No risk factors for ischemic colitis, but cannot rule out. Plan for CTA abdomen to
evaluate for thromboses.
#colitis
- Postprandial pain- CTA
- continue IVF, abx
- Continue clear diet as tolerated
- Outpt colonoscopy
#recurrent UTIs
- Klebsiella on urine culture.
- Continues on zosyn for colitis
- Periumbilical pain and odd smelling urine could be related to UTI vs colitis
-
-
Thank you for consultation and allowing me to participate in the patient's care. Please call the managing consultant clinical professor GI physician during the after hours with any questions or concerns.
--- NOTE | 2025-02-05 11:40 | W.PN.HOSP.TC ---
Today's Communication/Plan
-
CTA of abdomen pelvis
Assessment / Plan
Assessment / Plan
Physical exam:
General: Acutely ill
HEENT: Normocephalic, Atraumatic and Moist Mucous Membranes
Respiratory: Clear to Auscultation; Negative Wheezes, Rales or Rhonchi
Cardiac: Regular Rhythm and S1/S2
GI: Soft, tender and Nondistended
Musculoskeletal: No Clubbing, No Cyanosis and No Edema
Neuro: Awake, Alert and Oriented, no neurological
Psych: Calm
A/P:
Acute colitis:
Suspected infectious colitis but cannot rule out ischemic colitis
GI consult today and they would like to obtain a CTA of the abdomen
Will try to advance to low-fat diet today-we have not been able to advance diet due to her abdominal pain/abdominal cramps but prevent her to increase diet so we will see how she does today.
Continue antibiotics
Stool cultures negative
Off IV fluids
IV Dilaudid had to be restarted yesterday
Add Bentyl as needed and reevaluate
Patient had no EGD or colonoscopy in the past
Asymptomatic bacteriuria with Klebsiella pneumonia:
No need to treat but already received antibiotics for GI purposes.
Anemia:
Dilutional component
Continue to monitor
History of [place]'s:
No further evaluation
DVT prophylaxis:
Lovenox SQ
CODE STATUS:
Full code
Total time spent on today's encounter was 35 minutes which included time spent in counseling the patient/family regarding diagnosis and treatment plan as listed above, goals of care, and symptom management. Case was discussed with nursing staff,
specialists, and care coordinators/case management. All labs and imaging personally reviewed by me. Remainder the time spent in detailed review of previous records, lab data, imaging, and other medical provider documentation.
Anticipated Discharge: Within 24 hours
Subjective/Interval History
-
Date of Service: February 05, 2025
Patient overall better but still continues to have some abdominal pain. No nausea or vomiting.
Objective Data
-
Labs:
Laboratory Results
02/05/25
08:09
WBC 7.9
Hgb 10.1 L
Hct 32.4 L
Plt Count 297
Sodium 136
Potassium 3.7
Chloride 109 H
Carbon Dioxide 29
BUN 4 L
Creatinine 0.8
Glucose 85
Calcium 8.2 L
Vital Signs:
Vital Signs
Temp Pulse Resp BP Pulse Ox
99.3 F 73 12 97/62 95
02/05/25 07:00 02/05/25 07:00 02/05/25 07:00 02/05/25 07:00 02/05/25 07:00
I&O
02/04/25 02/05/25 02/06/25
06:59 06:59 06:59
Intake Total 1680 / 1680 240 / 240
Balance 1680 / 1680 240 / 240
--- NOTE | 2025-02-05 11:50 | CM ---
CM reviewed chart, patient seen in chair.
Patient denies needs from CM at this time- likely will return home with no needs.
Care ongoing, CM will continue to follow for all d/c planning needs.
Plan; home no needs
--- NOTE | 2025-02-05 14:19 | W.DCSUMMARY ---
Discharge Summary
Discharge Data
Date of Admission: 02/02/25
Date of Discharge: 02/05/25
-
Pending Results: No
Hospital Course
Patient 44 years old female with no significant past medical history except for [place]'s in the past came into the hospital abdominal pain and diarrhea. She also had leukocytosis upon admission. She was started on IV fluids and IV antibiotics and
her diet was advanced slowly according to her clinical course. Her CT scan was evidence of colitis. Her stool cultures was negative for a particular infection. Her blood cultures no growth. We had GI involved since this was more prolonged than
the usual cases of colitis and also she might need some further scope investigation. GI discussed with radiology to see if there was any concerns for GI vasculature issues but they were unimpressed with CT abdomen and they thought that doing a CTA
would be very low yield and GI agreed so did not pursue any further testing. She did have a urine culture positive Klebsiella pneumonia and we felt that she had asymptomatic bacteriuria although GI raised concerns for pyelonephritis but this was
not clear that this was the case. In any event she was treated with antibiotic for infectious colitis and that would cover pathology as well. GI also does recommend to have an outpatient colonoscopy and they will arrange for that. Her white
blood cell count was as high as 25 and it went down to normal 7.9 upon discharge. She also was able to tolerate low-fat diet day of discharge. GI reached out to me that she is cleared for discharge today. She will be discharged in stable
condition today.
Discharge Plan
-
Patient Disposition: Home (Routine Discharge)
Discharge Diagnosis/Procedures: Acute infectious colitis.
Diet: Low Fat
Activity: As tolerated
Blood Work: Please PCP to order CBC, BMP within 1 week
Referrals:
José Aquino MD [Family Provider, Internal Medicine] - in less than 1 week
Ani Noble DO [Active, Gastroenterology]
Referral Note: Call office to schedule colonoscopy
Prescriptions:
New
tramadol 50 mg Tablet
50 mg PO Q6HPRN PRN (Reason: moderate pain) Qty: 10 0RF
dicyclomine 10 mg Capsule
10 mg PO QIDPRN PRN (Reason: abdominal pain) Qty: 10 0RF
amoxicillin-pot clavulanate 875-125 mg Tablet
1 tab PO Q12 5 Days Qty: 10 0RF
Continued
therapeutic multivitamin Tablet
1 tab PO HS
inulin 2 gram Tablet,Chewable
2 g PO HS
Discharge Orders:
Discharge Patient (As Directed); Ordered 02/05/25
Ordered By: Franco Chou
Discharge Date and Time
Discharge Date/Time: 02/05/25 19:36
Print Language: ICELANDIC
[2025-02-05 14:48] VITALS: BP 104/69
[2025-02-05] MEDS: LOVENOX SC (17:02)
== END 2025-02-05 19:36 | disposition home or self-care (01) | DRG 392 ==
LOC: 4 WEST ACU 16:34
PROVIDERS: Physician Assistant; Registered Nurse; ADMITTING PHYSICIAN Hospitalist; ATTENDING PHYSICIAN Hospitalist; CONSULT PHYSICIAN Internal Medicine; EMERGENCY PHYSICIAN Emergency Medicine; FAMILY PHYSICIAN Student in an Organized Health Care Education/Training Program
DX: A09 Infectious gastroenteritis and colitis, unspecified (principal); E24.9 Cushing's syndrome, unspecified; Z87.440 Personal history of urinary (tract) infections; B96.1 Klebsiella pneumoniae [K. pneumoniae] as the cause of diseases classified elsewhere
CPT/HCPCS: 74177; 80048; 80053; 81003; 81015; 83605; 83690; 85025; 85027; 87040; 87077; 87086; 87186; 87324; 87449; 96361; 96365; 96375; 96376; 99285; Q9967

== ENCOUNTER 2025-03-07 06:22 | Day surgery (SDC) | payer BC, SELFPAY | END 2025-03-07 11:17 | disposition home or self-care (01) | LOC: GI 06:22 | PROVIDERS: ATTENDING PHYSICIAN Internal Medicine | DX: K52.9 Noninfective gastroenteritis and colitis, unspecified (principal); R93.3 Abnormal findings on diagnostic imaging of other parts of digestive tract; K64.4 Residual hemorrhoidal skin tags; K64.8 Other hemorrhoids; K63.89 Other specified diseases of intestine; K62.89 Other specified diseases of anus and rectum; D12.8 Benign neoplasm of rectum; D12.2 Benign neoplasm of ascending colon | CPT/HCPCS: 45385; 45380; 88305 ==